=== PATIENT | female | born 1995 | race Caucasian/White ===

== ENCOUNTER 2018-08-10 14:27 | Emergency (ER) | payer MEDICAID ==
[~2018-08-10] VITALS: Ht 157.5 cm; Wt 88.0 kg
[2018-08-10] MEDS ORDERED: BACITRACIN ZINC OINT UDPKT TOP ONE (16:15)
[2018-08-10 16:34] VITALS: BP 126/61
== END 2018-08-10 16:34 | disposition home or self-care (01) ==
LOC: ER 14:27
DX: S80.211A Abrasion, right knee, initial encounter (principal); Z98.890 Other specified postprocedural states; W01.0XXA Fall on same level from slipping, tripping and stumbling without subsequent striking against object, initial encounter; Y93.89 Activity, other specified; Y92.89 Other specified places as the place of occurrence of the external cause
CPT/HCPCS: 99282

== ENCOUNTER 2018-12-20 14:13 | Emergency (ER) | payer MEDICAID ==
[~2018-12-20] VITALS: Ht 154.9 cm; Wt 89.0 kg
[2018-12-20] MEDS ORDERED: SODIUM CHLORIDE 0.9% 1,000 ML IV ONE (16:40)
[2018-12-20] MEDS ORDERED: MORPHINE SULFATE 4 MG/ML CPJ (NOT FOR IM USE) IV STA (16:40)
[2018-12-20 17:02] LABS: BASOPHILS % 0.3 % (0.0-2.0); HEMATOCRIT. 39.3 % (36.0-48.0); HEMOGLOBIN. 13.3 g/dL (12.0-16.0); LYMPHOCYTES % 10.6 % (20.0-50.0); MEAN CORPUSCULAR HEMOGLOBIN 29.5 pg (28.0-32.0); MEAN CORPUSCULAR VOLUME 87.1 fL (81.0-99.0); MEAN PLATELET VOLUME 7.8 fl (7.4-10.4); MONOCYTES % 6.8 % (2.0-8.0); NEUTROPHILS % 82.3 % (40.0-76.0); PLATELET 222 x1000/uL (130-400); RED BLOOD CELL COUNT 4.52 mill/uL (4.2-5.4); RED CELL DISTRIBUTION WIDTH 13.8 % (11.6-14.6)
[2018-12-20 17:06] LABS: CHLORIDE 104 mEq/L (98-107)
[2018-12-20 17:07] LABS: PROTHROMBIN TIME 10.1 sec (9.6-11.0)
[2018-12-20 18:01] LABS: CLARITY URINE CLEAR (CLEAR); COLOR URINE YELLOW (YELLOW); KETONES URINE NEGATIVE (NEGATIVE); LEUKOCYTE ESTERASE URINE NEGATIVE (NEGATIVE); NITRITE URINE NEGATIVE (NEGATIVE); OCCULT BLOOD URINE TRACE (NEGATIVE); PROTEIN URINE NEGATIVE (NEGATIVE); SPECIFIC GRAVITY URINE 1.012 (1.005-1.030); UROBILINOGEN URINE 0.2 E.U./dL (0.2-1.0)
[2018-12-20] MEDS ORDERED: ACETAMINOPHEN 650MG/20.3ML UDC PO NR (20:45)
[2018-12-20 22:37] VITALS: BP 101/50
== END 2018-12-20 22:38 | disposition home or self-care (01) ==
LOC: ER 14:13
DX: K52.9 Noninfective gastroenteritis and colitis, unspecified (principal)
CPT/HCPCS: 36415; 80053; 81003; 81025; 83690; 85025; 85610; 96361; 96374; 99283; J2270; J7030; Z7610

== ENCOUNTER 2019-03-08 14:48 | Emergency (ER) | payer MEDICAID ==
[~2019-03-08] VITALS: Ht 157.5 cm; Wt 86.0 kg
[2019-03-08] MEDS ORDERED: METOCLOPRAMIDE HCL 10MG/2ML VIAL IV ONE (18:30)
[2019-03-08] MEDS ORDERED: DIPHENHYDRAMINE 50MG/ML VIAL IV ONE (18:30)
[2019-03-08] MEDS ORDERED: SODIUM CHLORIDE 0.9% 500 ML IV ONE (18:30)
[2019-03-08 20:43] VITALS: BP 120/75
== END 2019-03-08 20:45 | disposition home or self-care (01) ==
LOC: ER 14:48
DX: G43.909 Migraine, unspecified, not intractable, without status migrainosus (principal)
CPT/HCPCS: 81025; 96374; 96375; 99283; J1200; J2765; J7040

== ENCOUNTER 2020-05-04 13:43 | Emergency (ER) | payer MEDICAID ==
[~2020-05-04] VITALS: Ht 154.9 cm; Wt 88.0 kg
[2020-05-04] MEDS ORDERED: KETOROLAC 60MG/2ML VIAL IM ONE (14:30)
[2020-05-04 14:53] VITALS: BP 113/63
== END 2020-05-04 15:52 | disposition home or self-care (01) ==
LOC: ER 13:43
DX: R07.89 Other chest pain (principal); V49.49XA Driver injured in collision with other motor vehicles in traffic accident, initial encounter; Y93.89 Activity, other specified; Y92.89 Other specified places as the place of occurrence of the external cause; Y99.8 Other external cause status; G43.909 Migraine, unspecified, not intractable, without status migrainosus
CPT/HCPCS: 71045; 81025; 96372; 99283; J1885

== ENCOUNTER 2023-07-09 19:50 | Emergency (ER) | payer MEDICAID ==
[~2023-07-09] VITALS: Ht 157.5 cm; Wt 99.0 kg
[2023-07-09 20:07] VITALS: BP 132/74; PULSE 127; RESP 16; TEMP 102.9; O2SAT 99
[2023-07-09] MEDS ORDERED: ACETAMINOPHEN 325MG TABLET PO ONE (20:30)
[2023-07-09] MEDS ORDERED: SODIUM CHLORIDE 0.9% 500 ML IV ONE (20:45)
[2023-07-09 21:23] LABS: CLARITY URINE CLEAR (CLEAR); COLOR URINE YELLOW (YELLOW); GLUCOSE URINE NEGATIVE (NEGATIVE); KETONES URINE NEGATIVE (NEGATIVE); LEUKOCYTE ESTERASE URINE TRACE (NEGATIVE); NITRITE URINE NEGATIVE (NEGATIVE); OCCULT BLOOD URINE TRACE (NEGATIVE); PROTEIN URINE NEGATIVE (NEGATIVE); SPECIFIC GRAVITY URINE 1.006 (1.005-1.030); UROBILINOGEN URINE 0.2 E.U./dL (0.2-1.0)
[2023-07-09 22:05] LABS: BACTERIA URINE 2+; SQUAMOUS EPITHELIAL CELL URINE 1+ /lpf (RARE/1+)
[2023-07-09 22:06] LABS: RBC URINE 0-2 /hpf (0-2); WBC URINE 0-2 /hpf (0-2)
[2023-07-10] LABS: BASOPHILS % 0.4 % (0.0-2.0); EOSINOPHILS % 0.1 % (0.0-5.0); HEMATOCRIT. 42.1 % (36.0-48.0); HEMOGLOBIN. 14.1 g/dL (12.0-16.0); MEAN CORPUSCULAR HEMOGLOBIN 29.6 pg (28.0-32.0); MEAN CORPUSCULAR HGB CONC 33.6 g/dL (31.0-37.0); MEAN CORPUSCULAR VOLUME 88.2 fL (81.0-99.0); MEAN PLATELET VOLUME 8.1 fl (7.4-10.4); MONOCYTES % 7.7 % (2.0-8.0); NEUTROPHILS % 79.8 % (40.0-76.0); PLATELET 225 x1000/uL (130-400); RED BLOOD CELL COUNT 4.77 mill/uL (4.2-5.4); RED CELL DISTRIBUTION WIDTH 13.5 % (11.6-14.6)
[2023-07-10 00:09] LABS: ALANINE AMINOTRANSFERASE 83 IU/L (10-49); ALBUMIN 4.6 g/dL (3.2-4.8); ASPARTATE AMINOTRANSFERASE 42 IU/L (<34); BILIRUBIN TOTAL 0.4 mg/dL (0.1-1.0); CALCIUM 9.5 mg/dL (8.7-10.4); CARBON DIOXIDE 24 mEq/L (21-32); CHLORIDE 103 mEq/L (98-107); CREATININE 0.8 mg/dL (0.6-1.0); GLUCOSE 110 mg/dL (70-105); POTASSIUM 3.9 mEq/L (3.5-5.1); SODIUM 133 mEq/L (136-145); TROPONIN I HIGH SENSITIVITY 33 ng/L (3.0-34); UREA NITROGEN BLOOD 10 mg/dL (9-23)
[2023-07-10] MEDS ORDERED: ACET-2708 MT (00:57)
== END 2023-07-10 01:29 | disposition home or self-care (01) ==
LOC: ER 19:50
DX: O26.891 Other specified pregnancy related conditions, first trimester (principal); B34.9 Viral infection, unspecified; Z3A.01 Less than 8 weeks gestation of pregnancy; Z20.822 Contact with and (suspected) exposure to COVID-19
CPT/HCPCS: 99284; 71045; 87426; 80053; 81003; 81025; 85025; 87420; 84484; 87804 ×2; 36415; J7030

== ENCOUNTER 2023-12-27 19:05 | Emergency (ER) | payer MEDICAID, OTHER ==
[~2023-12-27] VITALS: Ht 154.9 cm; Wt 98.0 kg
[~2023-12-27 19:05] MED LIST: ACET-2708 MT
[2023-12-27 19:29] VITALS: TEMP 98.7; O2SAT 100
[2023-12-27 19:44] LABS: BASOPHILS % 0.4 % (0.0-2.0); EOSINOPHILS % 0.8 % (0.0-5.0); HEMATOCRIT. 40.1 % (36.0-48.0); HEMOGLOBIN. 13.4 g/dL (12.0-16.0); LYMPHOCYTES % 21.1 % (20.0-50.0); MEAN CORPUSCULAR HEMOGLOBIN 28.9 pg (28.0-32.0); MEAN CORPUSCULAR HGB CONC 33.5 g/dL (31.0-37.0); MEAN CORPUSCULAR VOLUME 86.3 fL (81.0-99.0); MEAN PLATELET VOLUME 7.6 fl (7.4-10.4); MONOCYTES % 7.5 % (2.0-8.0); NEUTROPHILS % 70.2 % (40.0-76.0); PLATELET 283 x1000/uL (130-400); RED BLOOD CELL COUNT 4.65 mill/uL (4.2-5.4); RED CELL DISTRIBUTION WIDTH 13.6 % (11.6-14.6); WHITE BLOOD COUNT 13.2 x1000/uL (4.5-11.0)
[2023-12-27 19:51] LABS: CARBON DIOXIDE 26 mEq/L (21-32); CHLORIDE 104 mEq/L (98-107); SODIUM 136 mEq/L (136-145)
[2023-12-27 19:52] LABS: CALCIUM 9.3 mg/dL (8.7-10.4)
[2023-12-27 19:56] LABS: CREATININE 0.7 mg/dL (0.6-1.0); GLUCOSE 93 mg/dL (70-105)
[2023-12-27 19:57] LABS: UREA NITROGEN BLOOD 11 mg/dL (9-23)
[2023-12-27 19:58] LABS: ALANINE AMINOTRANSFERASE 52 IU/L (10-49); ASPARTATE AMINOTRANSFERASE 31 IU/L (<34)
[2023-12-27 19:59] LABS: ALBUMIN 4.6 g/dL (3.2-4.8); BILIRUBIN DIRECT < 0.1 mg/dL (<=3.0); BILIRUBIN TOTAL 0.3 mg/dL (0.1-1.0); HCG SCREEN NEGATIVE; PROTEIN TOTAL 7.6 g/dL (6.0-8.3)
[2023-12-27 20:15] LABS: CLARITY URINE CLOUDY (CLEAR); COLOR URINE ORANGE (YELLOW); GLUCOSE URINE NEGATIVE (NEGATIVE); KETONES URINE NEGATIVE (NEGATIVE); LEUKOCYTE ESTERASE URINE 1+ (NEGATIVE); NITRITE URINE NEGATIVE (NEGATIVE); OCCULT BLOOD URINE 3+ (NEGATIVE); PH URINE 6.5 (4.5-8.0); PROTEIN URINE TRACE (NEGATIVE); SPECIFIC GRAVITY URINE 1.015 (1.005-1.030); UROBILINOGEN URINE 0.2 E.U./dL (0.2-1.0)
[2023-12-27 20:20] LABS: UCG SCREEN NEGATIVE
[2023-12-27 20:34] LABS: BACTERIA URINE 3+; RBC URINE TNTC /hpf (0-2); SQUAMOUS EPITHELIAL CELL URINE FEW /lpf (RARE/1+)
[2023-12-27] MEDS: KETOROLAC 30MG/ML VIAL IM NR (22:48)
[2023-12-27] MEDS ORDERED: IBUP-2029 MT (22:53)
[2023-12-27 22:55] VITALS: BP 127/75; PULSE 92; RESP 18
== END 2023-12-27 22:53 | disposition home or self-care (01) ==
LOC: ER 19:05
DX: K57.92 Diverticulitis of intestine, part unspecified, without perforation or abscess without bleeding (principal)
CPT/HCPCS: 80076; 80048; 81003; 81025; 84703; 85025; 86850; 86900; 86901; 36415; 74176; 96372; 99285; J1885; Z7610

== ENCOUNTER 2024-05-21 17:30 | Emergency (ER) | payer SELFPAY ==
[~2024-05-21] VITALS: Ht 154.9 cm; Wt 100.0 kg
[~2024-05-21 17:30] MED LIST changes: +IBUP-2029 MT
[2024-05-21 17:46] VITALS: TEMP 98; O2SAT 100
[2024-05-21 18:24] LABS: CHLORIDE 104 mEq/L (98-107); SODIUM 137 mEq/L (136-145)
[2024-05-21 18:25] LABS: BASOPHILS % 0.3 % (0.0-2.0); CARBON DIOXIDE 28 mEq/L (21-32); EOSINOPHILS % 0.7 % (0.0-5.0); HEMOGLOBIN. 13.2 g/dL (12.0-16.0); LYMPHOCYTES % 30.7 % (20.0-50.0); MEAN CORPUSCULAR HEMOGLOBIN 28.8 pg (28.0-32.0); MEAN CORPUSCULAR HGB CONC 33.8 g/dL (31.0-37.0); MEAN PLATELET VOLUME 7.9 fl (7.4-10.4); MONOCYTES % 7.7 % (2.0-8.0); NEUTROPHILS % 60.6 % (40.0-76.0); PLATELET 321 x1000/uL (130-400); RED BLOOD CELL COUNT 4.58 mill/uL (4.2-5.4); RED CELL DISTRIBUTION WIDTH 14.6 % (11.6-14.6); WHITE BLOOD COUNT 9.1 x1000/uL (4.5-11.0)
[2024-05-21 18:26] LABS: CALCIUM 9.6 mg/dL (8.7-10.4)
[2024-05-21 18:31] LABS: CREATININE 0.8 mg/dL (0.6-1.0); GLUCOSE 92 mg/dL (70-105); UREA NITROGEN BLOOD 11 mg/dL (9-23)
[2024-05-21 18:36] LABS: HCG SCREEN NEGATIVE
[2024-05-21 18:37] LABS: CLARITY URINE CLEAR (CLEAR); COLOR URINE YELLOW (YELLOW); GLUCOSE URINE NEGATIVE (NEGATIVE); KETONES URINE NEGATIVE (NEGATIVE); LEUKOCYTE ESTERASE URINE 1+ (NEGATIVE); NITRITE URINE NEGATIVE (NEGATIVE); OCCULT BLOOD URINE NEGATIVE (NEGATIVE); PROTEIN URINE NEGATIVE (NEGATIVE); SPECIFIC GRAVITY URINE 1.014 (1.005-1.030); UROBILINOGEN URINE 0.2 E.U./dL (0.2-1.0)
[2024-05-21] MEDS: IBUPROFEN 600MG TABLET PO ONE (18:56)
[2024-05-21 19:26] LABS: BACTERIA URINE 1+; RBC URINE 0-2 /hpf (0-2); SQUAMOUS EPITHELIAL CELL URINE 1+ /lpf (RARE/1+)
[2024-05-21] MEDS ORDERED: SULF1TAB48 MT (19:32)
[2024-05-21] MEDS ORDERED: IBUP-2029 MT (19:32)
[2024-05-21 20:10] VITALS: BP 133/68; PULSE 80; RESP 17; O2SAT 100
== END 2024-05-21 20:11 | disposition home or self-care (01) ==
LOC: ER 17:30
DX: N30.00 Acute cystitis without hematuria (principal); Z98.890 Other specified postprocedural states; Z79.899 Other long term (current) drug therapy
CPT/HCPCS: 36415; 80048; 81003; 81025; 84703; 85025; 99283